=== PATIENT | female | born 1975 | race Caucasian/White ===

== ENCOUNTER 2023-07-13 20:57 | Emergency (ER) | payer OTHER ==
[2023-07-13] MEDS: Amoxicillin/Clavulanate K 875-125 MG Tab PO ONE (21:14)
== END 2023-07-13 21:20 | disposition home or self-care (01) ==
LOC: KA.ED 20:57
DX: T81.49XA Infection following a procedure, other surgical site, initial encounter (principal); L08.9 Local infection of the skin and subcutaneous tissue, unspecified; Z79.899 Other long term (current) drug therapy
CPT/HCPCS: 99283; A9270-GY